=== PATIENT | female | born 1995 ===

== ENCOUNTER 2021-03-15 15:14 | Emergency (ER) | payer OTHER ==
[~2021-03-15] VITALS: Ht 167.6 cm; Wt 104.3 kg
[2021-03-15 16:06] VITALS: BP 148/83
[2021-03-15] MEDS ORDERED: IBUPROFEN 800 MG TAB PO ONE (17:00)
== END 2021-03-15 17:18 | disposition home or self-care (01) ==
LOC: ER 15:14
DX: S06.0X0A Concussion without loss of consciousness, initial encounter (principal); Z88.0 Allergy status to penicillin; W07.XXXA Fall from chair, initial encounter; Y93.89 Activity, other specified; Y92.89 Other specified places as the place of occurrence of the external cause; Y99.8 Other external cause status
CPT/HCPCS: 70450